=== PATIENT | female | born 1980 ===

== ENCOUNTER 2017-08-23 16:34 | Emergency (ER) | payer BC ==
[2017-08-23] MEDS ORDERED: Cephalexin 500 MG Cap PO ONE ×2 (16:35→18:17)
[2017-08-23 16:59] VITALS: BP 127/83
--- NOTE | 2017-08-23 17:03 | EDM.PDOC ---
ED HPI GENERAL MEDICAL PROBLEM - General Chief Complaint: Upper Extremity Injury/Pain Stated Complaint: BLEADING FINGER [id number] Time Seen by Provider: 08/23/17 17:02 Source of Information: Reports: Patient History Limitations: Reports: No Limitations - History of Present Illness INITIAL COMMENTS - FREE TEXT/NARRATIVE: 37 yo white female c/o left 4th finger pain after caught between gate kicked by calf @ 3:30PM Onset: Today Onset Date: 08/23/17 Onset Time: 15:30 Duration: Hour(s): Location: Reports: Upper Extremity, Left Quality: Reports: Ache, Pressure Severity: Moderate Improves with: Reports: None Worsens with: Reports: None Context: Reports: Trauma Associated Symptoms: Reports: No Other Symptoms Treatments [employer]: Reports: NSAIDS (Advil 400mg) Left 4-Ring finger Pain Score (Numeric/FACES): 5 - Related Data Allergies Allergy/AdvReac Type Severity Reaction Status Date / Time No Known Allergies Allergy Verified 08/23/17 16:55 Home Meds: Home Meds . [No Known Home Meds] 08/23/17 [History] Social & Family History - Tobacco Use Smoking Status *Q: Never Smoker - Caffeine Use Caffeine Use: Reports: Coffee, Soda - Recreational Drug Use Recreational Drug Use: No Review of Systems - Review of Systems Review Of Systems: See Below Constitutional: Reports: No Symptoms Eyes: Reports: No Symptoms Ears: Reports: No Symptoms Nose: Reports: No Symptoms Mouth/Throat: Reports: No Symptoms Respiratory: Reports: No Symptoms Cardiovascular: Reports: No Symptoms GI/Abdominal: Reports: No Symptoms Genitourinary: Reports: No Symptoms Musculoskeletal: Reports: Hand Pain (left fourth finger) Skin: Reports: Bruising, Wound Neurological: Reports: No Symptoms Psychiatric: Reports: No Symptoms ED EXAM, GENERAL - Physical Exam Exam: See Below Exam Limited By: No Limitations General Appearance: Alert, WD/WN, No Apparent Distress Eye Exam: Bilateral Eye: PERRL Ears: Normal External Exam Nose: Normal Inspection Throat/Mouth: Normal Inspection Head: Atraumatic Neck: Normal Inspection Respiratory/Chest: No Respiratory Distress, Lungs Clear Cardiovascular: Normal Peripheral Pulses Peripheral Pulses: 2+: Radial (L), Radial (R) GI/Abdominal: Normal Bowel Sounds Back Exam: Normal Inspection Extremities: Normal Inspection Neurological: Alert, Oriented, CN II-XII Intact Psychiatric: Normal Affect Skin Exam: Warm, Ecchymosis (left fourth finger), Erythema Lymphatic: No Adenopathy Course - Vital Signs Text/Narrative:: Patient imaging reviewed with Orthopedic Surgeon Dr. Smith at [facility] and Advised to wound dressing Last Recorded V/S: Last Vital Signs Temp 36.9 C 08/23/17 16:56 Pulse 73 08/23/17 16:56 Resp 16 08/23/17 16:56 BP 127/83 08/23/17 16:56 Pulse Ox 100 08/23/17 16:56 - Orders/Labs/Meds Orders: Active Orders 24 hr Category Date Time Status Bacitracin [Bacitracin Oint 1 GM] Med 08/23/17 18:12 Once 1 dose TOP ONETIME ONE Departure - Departure Time of Disposition: 18:13 Disposition: Home, Self-Care 01 Condition: Good Clinical Impression: Fracture of finger of left hand Qualifiers: Encounter type: initial encounter Finger: ring finger Fracture type: closed Phalanx: distal Fracture alignment: nondisplaced Qualified Code(s): S62.665A - Nondisplaced fracture of distal phalanx of left ring finger, initial encounter for closed fracture - Discharge Information Forms: ED Department Discharge Additional Instructions: Your Xrays were reviewed by Orthopedic Surgeon Dr. Smith from [facility] in [facility] the oral antibiotic a Keep area clean and dry Wear splint as needed Take the oral antibiotic as prescribed and complete: KEFLEX 500mg BID # 20 F/U w/ PCP - My Orders Last 24 Hours: My Active Orders 08/23/17 18:12 Bacitracin [Bacitracin Oint 1 GM] 1 dose TOP ONETIME ONE - Assessment/Plan Last 24 Hours: My Active Orders 08/23/17 18:12 Bacitracin [Bacitracin Oint 1 GM] 1 dose TOP ONETIME ONE
[2017-08-23] MEDS ORDERED: Bacitracin Oint 1 GM U/D Packet TOP ONE (18:12)
[2017-08-23] MEDS ORDERED: Cephalexin 500 MG Cap ONE (18:27)
--- NOTE | 2017-08-27 11:02 | CR ---
Addendum report: Ring finger x-rays left hand 23 August ([facility]) and follow-up Augob er ([facility]) reviewed with primary care provider (Dr. Antunez). IMPRESSION: Mild soft tissue swelling distally but no acute or healing underlying fracture left fourt h (ring) finger appreciated.
== END 2017-08-23 18:38 | disposition home or self-care (01) ==
LOC: DL.ED 16:34
DX: S62.665A Nondisplaced fracture of distal phalanx of left ring finger, initial encounter for closed fracture (principal); W55.22XA Struck by cow, initial encounter
CPT/HCPCS: 73140; 99283; A9270